=== PATIENT | female | born 1995 | race Caucasian/White ===

== ENCOUNTER 2020-04-04 20:36 | Emergency (ER) | payer OTHER ==
[~2020-04-04] VITALS: Ht 154.9 cm; Wt 72.6 kg
[2020-04-04] MEDS ORDERED: PROTONIX 20 MG20 M1 PO (21:02)
[2020-04-04] MEDS ORDERED: PROAIR HFA8.5 GM INH (21:02)
[2020-04-04] MEDS ORDERED: HYDROXYZINE HCL25 M2 PO (21:05)
[2020-04-04] MEDS ORDERED: SERTRALINE HCL50 MG PO (21:05)
[2020-04-04 21:08] LABS: URINE BILIRUBIN NEGATIVE (Negative); URINE BLOOD NEGATIVE (Negative); URINE CLARITY CLEAR; URINE COLOR YELLOW; URINE GLUCOSE-RANDOM* NEGATIVE (Negative); URINE KETONES 1+ (Negative); URINE LEUKOCYTES-REFLEX NEGATIVE (Negative); URINE NITRITE-REFLEX NEGATIVE (Negative); URINE PROTEIN (DIPSTICK) NEGATIVE (Negative); URINE SPECIFIC GRAVITY 1.025 (1.005-1.035); URINE UROBILINOGEN 0.2 E.U./dl (0.2-1.0)
[2020-04-04 22:09] LABS: ABSOLUTE NEUTROPHILS 4.5 thou/uL (1.4-8.2); ANION GAP 10 mmol/L (7-16); BASOPHILS 1.2 % (0.0-2.0); BUN 8 mg/dL (7-18); CALCIUM 8.7 mg/dL (8.5-10.1); CHLORIDE 103 mmol/L (98-107); CO2 26 mmol/L (21-32); CREATININE 0.8 mg/dL (0.6-1.0); EOSINOPHILS 6.1 % (0.0-3.0); GLUCOSE 82 mg/dL (74-106); HEMATOCRIT 42.3 % (37.0-47.0); HEMOGLOBIN 14.1 gm/dL (12.0-15.0); LYMPHOCYTES 27.2 % (24.0-44.0); MCHC 33.3 g/dL (28.0-37.0); MCV 90.2 fL (80.0-100.0); MONOCYTES 6.9 % (1.0-8.0); PLATELET COUNT 282 thou/uL (150-400); POLYS 58.6 % (36.0-66.0); POTASSIUM 3.8 mmol/L (3.5-5.1); RBC 4.69 mil/uL (4.20-5.00); RDW 13.7 % (10.5-14.5); SODIUM 139 mmol/L (136-145); WBC 7.6 thou/uL (4.0-11.0)
[2020-04-04 22:16] LABS: ALBUMIN 4.2 g/dL (3.4-5.0); DIRECT BILIRUBIN < 0.1 mg/dL (<0.1-0.2); LIPASE 123 U/L (73-393); SGOT 33 U/L (15-37); SGPT 34 U/L (30-65); TOTAL BILIRUBIN 0.3 mg/dL (0.2-1.0); TOTAL PROTEIN 7.5 g/dL (6.4-8.2)
[2020-04-04] MEDS ORDERED: DULCOLAX STOOL100 M1 PO (22:39)
[2020-04-04] MEDS ORDERED: BENTYL 20 MG TA20 M1 PO (22:39)
[2020-04-04] MEDS ORDERED: GAS RELIEF 8080 MG PO (22:39)
[2020-04-04 22:46] VITALS: BP 125/72
== END 2020-04-04 22:47 | disposition home or self-care (01) ==
LOC: ER 20:36
PROVIDERS: Emergency Medicine
DX: R10.84 Generalized abdominal pain (principal); J45.909 Unspecified asthma, uncomplicated; Z79.899 Other long term (current) drug therapy; Z88.0 Allergy status to penicillin; Z88.2 Allergy status to sulfonamides; Z88.8 Allergy status to other drugs, medicaments and biological substances; Z91.040 Latex allergy status